=== PATIENT | male | born 1950 | race Caucasian/White ===

== ENCOUNTER → 2021-03-15 | Outpatient (REF) | payer OTHER | LOC: M LAB REF 17:13 | PROVIDERS: ATTEND Otolaryngology | DX: H92.11 Otorrhea, right ear (principal) ==

== ENCOUNTER → 2025-07-15 | Outpatient (REF) | payer MEDICARE, OTHER | LOC: M LAB REF 15:36 | PROVIDERS: ATTEND Physician Assistant | DX: H92.11 Otorrhea, right ear (principal); H72.01 Central perforation of tympanic membrane, right ear ==

== ENCOUNTER → 2025-07-25 | Outpatient (CLI) | payer OTHER, MEDICARE | LOC: M PLAIMG 10:43 | PROVIDERS: ATTEND Physician Assistant | DX: H92.11 Otorrhea, right ear (principal) ==